=== PATIENT | male | born 1995 | race Caucasian/White ===

== ENCOUNTER 2018-11-07 15:54 | Outpatient (RCR) | payer OTHER ==
[~2018-11-07 15:54] MED LIST: NO HOME MEDICATIONS
== END 2019-02-05 | disposition still patient (30) ==
LOC: WSOH
DX: Z77.21 Contact with and (suspected) exposure to potentially hazardous body fluids (principal); X58.XXXA Exposure to other specified factors, initial encounter; Y93.F9 Activity, other caregiving; Y92.234 Operating room of hospital as the place of occurrence of the external cause; Y99.0 Civilian activity done for income or pay

== ENCOUNTER → 2019-04-19 | Outpatient (CLI) | payer OTHER | LOC: COL.RAD 08:08 | DX: I86.1 Scrotal varices (principal) ==

== ENCOUNTER 2020-06-04 15:00 | Outpatient (RCR) | payer OTHER | END 2020-09-02 | disposition home or self-care (01) | LOC: WSOH | DX: S83.91XA Sprain of unspecified site of right knee, initial encounter (principal); Z90.89 Acquired absence of other organs; Y99.0 Civilian activity done for income or pay ==

== ENCOUNTER → 2020-07-22 | Outpatient (CLI) | payer OTHER | LOC: COL.RAD 07:04 | DX: R10.11 Right upper quadrant pain (principal); Z85.79 Personal history of other malignant neoplasms of lymphoid, hematopoietic and related tissues ==

== ENCOUNTER → 2020-11-19 | Outpatient (CLI) | payer OTHER | LOC: COL.RAD 06:59 | DX: C81.01 Nodular lymphocyte predominant Hodgkin lymphoma, lymph nodes of head, face, and neck (principal) | CPT/HCPCS: Q9967 ==

== ENCOUNTER → 2020-12-23 | Outpatient (REF) | LOC: COL.LAB 07:33 | DX: Z20.822 Contact with and (suspected) exposure to COVID-19 (principal) ==